=== PATIENT | male | born 1975 | race African-American/Black ===

== ENCOUNTER 2019-03-30 20:52 | Emergency (ER) | payer SELFPAY ==
[~2019-03-30] VITALS: Ht 185.4 cm; Wt 81.6 kg
[2019-03-30 20:52] VITALS: BP 133/92
[2019-03-30] MEDS ORDERED: MORPHINE SULFATE 4 MG/ML SYR IVP ONE (21:35)
[2019-03-30 21:48] LABS: BASOPHILS % (AUTO) 1.1 % (0.0-2.0); EOSINOPHILS % (AUTO) 0.4 % (0.0-4.0); HEMATOCRIT 38.5 % (36-52); HEMOGLOBIN 13.1 g/dL (12.0-18.0); LYMPHOCYTES # (AUTO) 1.9 K/uL (2.0-11.5); LYMPHOCYTES % (AUTO) 45.5 % (20.5-51.1); MEAN CORPUSCULAR HEMOGLOBIN 33 pg (27-31); MEAN CORPUSCULAR HGB CONC 34 g/dL (33-37); MEAN CORPUSCULAR VOLUME 95.5 fL (80-94); MONOCYTES # (AUTO) 0.4 K/uL (0.8-1.0); MONOCYTES % (AUTO) 10.8 % (1.7-9.3); NEUTROPHILS # (AUTO) 1.7 K/uL (1.8-7.7); NEUTROPHILS % (AUTO) 42.2 % (42.2-75.2); PLATELET COUNT (AUTO) 209 K/uL (140-450); RED BLOOD CELL COUNT(AUTO) 4.03 MIL/uL (4.20-6.10); RED CELL DISTRIBUTION WIDTH 15.3 % (11.6-13.7); WHITE BLOOD COUNT (AUTO) 4.1 K/uL (4.8-10.8)
[2019-03-30 21:58] LABS: ANION GAP 14.8 (8-16); CARBON DIOXIDE 29.4 mmol/L (21-32); CREATININE 1.3 mg/dL (0.7-1.3); POTASSIUM 4.2 mmol/L (3.5-5.1)
[2019-03-30 22:04] LABS: ALBUMIN 3.9 g/dL (3.4-5.0); TOTAL BILIRUBIN 0.6 mg/dL (0.0-1.0)
[2019-03-30] MEDS ORDERED: LORazepam 2 MG/ML VIAL IVP ONE (22:35)
[2019-03-31 00:40] VITALS: BP 122/80
== END 2019-03-31 00:39 | disposition home or self-care (01) ==
LOC: MED 20:52
DX: F41.9 Anxiety disorder, unspecified (principal); F10.239 Alcohol dependence with withdrawal, unspecified; Z85.72 Personal history of non-Hodgkin lymphomas
CPT/HCPCS: 36415; 71045; 71275; 80053; 84484; 85025; 85379; 93005; 96374; 96375; 99284; J2060; J2270; Q0092; Q9967

== ENCOUNTER 2019-03-31 14:04 | Emergency (ER) | payer SELFPAY ==
[~2019-03-31] VITALS: Ht 185.4 cm; Wt 67.7 kg
[2019-03-31 14:16] VITALS: BP 113/96
== END 2019-03-31 15:26 | disposition left against medical advice (07) ==
LOC: MED 14:04
DX: R00.0 Tachycardia, unspecified (principal); R07.9 Chest pain, unspecified; R11.0 Nausea; R06.02 Shortness of breath; Z53.21 Procedure and treatment not carried out due to patient leaving prior to being seen by health care provider
CPT/HCPCS: 93005; 99281